=== PATIENT | male | born 1995 | race Caucasian/White ===

== ENCOUNTER 2023-08-21 10:02 | Emergency (ER) | payer SELFPAY ==
[~2023-08-21] VITALS: Ht 172.7 cm; Wt 66.0 kg
[2023-08-21 10:11] VITALS: BP 124/78; PULSE 106; RESP 16; TEMP 100.8; O2SAT 98
[2023-08-21 10:47] LABS: HEMATOCRIT. 43.4 % (42.0-52.0); HEMOGLOBIN. 14.7 g/dL (14.0-18.0); MEAN CORPUSCULAR HEMOGLOBIN 29.3 pg (28.0-32.0); MEAN CORPUSCULAR HGB CONC 33.9 g/dL (31.0-37.0); MEAN CORPUSCULAR VOLUME 86.5 fL (80.0-94.0); MEAN PLATELET VOLUME 9.4 fl (7.4-10.4); PLATELET 210 x1000/uL (130-400); RED BLOOD CELL COUNT 5.02 mill/uL (4.7-6.1); RED CELL DISTRIBUTION WIDTH 14.2 % (11.6-14.6); WHITE BLOOD COUNT 11.1 x1000/uL (4.5-11.0)
[2023-08-21 10:48] LABS: DIFFERENTIAL COMMENT 1
[2023-08-21 11:05] LABS: ALANINE AMINOTRANSFERASE 34 IU/L (10-49); ALBUMIN 4.8 g/dL (3.2-4.8); ASPARTATE AMINOTRANSFERASE 26 IU/L (<34); CALCIUM 9.4 mg/dL (8.7-10.4); CARBON DIOXIDE 27 mEq/L (21-32); CHLORIDE 101 mEq/L (98-107); CREATININE 0.8 mg/dL (0.6-1.3); GLUCOSE 112 mg/dL (70-105); POTASSIUM 3.9 mEq/L (3.5-5.1); PROTEIN TOTAL 8.1 g/dL (6.0-8.3); SODIUM 134 mEq/L (136-145); UREA NITROGEN BLOOD 11 mg/dL (9-23)
[2023-08-21 15:06] LABS: PLATELET ESTIMATE NORMAL
== END 2023-08-21 11:55 | disposition left against medical advice (07) ==
LOC: ER 10:02 → EDBD 10:02 → ER 11:55
DX: R10.9 Unspecified abdominal pain (principal); Z20.822 Contact with and (suspected) exposure to COVID-19; Z53.21 Procedure and treatment not carried out due to patient leaving prior to being seen by health care provider
CPT/HCPCS: 36415; 80053; 85025; 87426; 99281; 99283